=== PATIENT | male | born 1995 | race Caucasian/White ===

== ENCOUNTER 2017-01-28 10:12 | Emergency (ER) | payer MEDICAID ==
[2017-01-28 10:18] VITALS: PULSE 68
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
[2017-01-28] MEDS ORDERED: LET GEL TOPICAL 1 EA SYR TP ONE (11:24)
[2017-01-28 13:56] VITALS: BP 120/71; RESP 20; TEMP 98.6; O2SAT 96
== END 2017-01-28 14:01 | disposition home or self-care (01) ==
DX: S62.92XA Unspecified fracture of left hand, initial encounter for closed fracture (principal); S09.90XA Unspecified injury of head, initial encounter; V18.4XXA Pedal cycle driver injured in noncollision transport accident in traffic accident, initial encounter; Y92.410 Unspecified street and highway as the place of occurrence of the external cause; Y99.8 Other external cause status; Y93.89 Activity, other specified
CPT/HCPCS: A4565

== ENCOUNTER 2017-02-02 07:30 | Day surgery (SDC) | payer MEDICAID ==
[~2017-02-02 07:30] MED LIST: ceFAZolin 2 GM/DEXTROSE 100 ML IV ONE
[2017-02-02] MEDS ORDERED: BUPIVACAINE 0.5% 30 ML SDV ONE (08:32)
[2017-02-02] MEDS ORDERED: POLYMYXIN B SULFATE 500,000 UNIT/10 ML SYR IRR ONE (08:32)
[2017-02-02] MEDS ORDERED: LIDOCAINE 1% 5 ML SDV ID PRN (08:48)
[2017-02-02] MEDS ORDERED: LR 1,000 ML IV ONE (08:48)
[2017-02-02] MEDS ORDERED: fentaNYL 100 MCG/2 ML INJ ONE (09:11)
[2017-02-02] MEDS ORDERED: DEXAMETHASONE 4 MG/ML VIAL ONE (09:11)
[2017-02-02] MEDS ORDERED: PROPOFOL 200 MG/20 ML VIAL ONE (09:11)
[2017-02-02] MEDS ORDERED: LIDOCAINE 2% 5 ML SDV ONE (09:11)
[2017-02-02] MEDS ORDERED: KETOROLAC 30 MG/1 ML SDV ONE (09:12)
[2017-02-02] MEDS ORDERED: MIDAZOLAM 2 MG/2 ML VIAL ONE (09:19)
[2017-02-02] MEDS ORDERED: BUPIVACAINE/EPI 0.5% 30 ML SDV ONE (09:37)
[2017-02-02] MEDS ORDERED: HYDROCODONE/APAP 5/325 TAB ONE (11:29)
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
== END 2017-02-02 11:55 | disposition home or self-care (01) ==
LOC: FSGY 07:30
PROVIDERS: ATTEND Orthopaedic Surgery Hand Surgery
PROC: 0PSQ34Z Reposition Left Metacarpal with Internal Fixation Device, Percutaneous Approach (ICD-10-PCS; principal; 2017-02-02 09:30)
DX: S62.317A Displaced fracture of base of fifth metacarpal bone, left hand, initial encounter for closed fracture (principal); V18.0XXA Pedal cycle driver injured in noncollision transport accident in nontraffic accident, initial encounter; Y93.55 Activity, bike riding
CPT/HCPCS: 26608; C1769; J0690; J1100; J1885; J2250; J2704; J3010